=== PATIENT | female | born 1990 | race Caucasian/White ===

== ENCOUNTER → 2019-04-27 | Outpatient (CLI) | payer OTHER ==
[2019-04-27 16:29] LABS: HEMATOCRIT 38.3 % (36.0-47.0); HEMOGLOBIN 13.2 g/dL (12.0-15.5); RED BLOOD COUNT 4.04 x10^6/uL (3.50-5.40); RED CELL DISTRIBUTION WIDTH 13.2 % (11.5-14.5); WHITE BLOOD COUNT 9.2 x10^3/uL (4.0-11.0)
[2019-04-28 19:07] LABS: RUBELLA IGG ANTIBODY 7.69 index (Immune >0.99)
== END | disposition home or self-care (01) ==
LOC: LAB 15:16
PROVIDERS: ATTEND Obstetrics & Gynecology
DX: Z33.1 Pregnant state, incidental (principal)
CPT/HCPCS: 36415; 85027; 86592; 86703; 86762; 86787; 86803; 86850; 86900; 86901; 87340

== ENCOUNTER → 2019-05-03 | Outpatient (CLI) | payer OTHER ==
--- NOTE | 2019-05-04 10:31 | RAD ---
Examination: OB <14 WKS History: Assessment of dates; Comparison/Correlation: None Findings: Single living intrauterine gestation is present. Normal quantity of amniotic fluid is present. cardiac heart rate is 150 bpm. Breech lie is noted. Placenta is at the posterior wall. Cephalic index is 84.2. Head circumference to abdominal circumference ratio is 1.22 Femur length to biparietal diameter ratio is 49.6 Femur length head circumference measures 13.4 Femur length abdominal circumference ratio 16.4 Biparietal diameter of 2.48 cm is present corresponding to 14 weeks 2 day gestation. Head circumference is 9.16 cm corresponding to 14 weeks 1 day gestation. Abdominal circumference is 7.52 cm corresponding to 14 weeks 0 day gestation. Femur length is 1.23 cm corresponding to 13 week 4 day gestation. Impression: Single living intrauterine gestation is present with breech lie and average ultrasound age of 14 weeks 0 day. This is 3 days greater than age by last menstrual period. Ultrasound EDC 11/01/2019. Electronically signed by: Harsha Dunaway MD (05/04/2019 10:28 AM) [facility]
== END | disposition home or self-care (01) ==
LOC: US 08:46
PROVIDERS: ATTEND Obstetrics & Gynecology
DX: O32.1XX0 Maternal care for breech presentation, not applicable or unspecified (principal); Z3A.14 14 weeks gestation of pregnancy
CPT/HCPCS: 76801